=== PATIENT | female | born 1995 | race Caucasian/White ===

== ENCOUNTER 2023-05-25 00:06 | Emergency (ER) | payer SELFPAY ==
[2023-05-25 00:20] VITALS: BP 139/89
--- NOTE | 2023-05-25 00:44 | ED.GENMED ---
History of Present Illness
<DALIA Garvin - Last Filed: 05/25/23 02:16>
General
Chief Complaint: Blood and Body Fluid Exposure
Source: patient
Exam Limitations: none
Time Seen by Provider: 05/25/23 00:38
Nursing documentation reviewed up to this point in time: agreed with
Travel History
Have you had any contact with someone who has COVID-19?: No
Do you have any symptoms of coronavirus? Fever > 100 degrees, chills, cough, shortness of breath, sore throat, loss of taste or smell, muscle aches, or headache?: No
History of Present Illness
History of Present Illness:
This is a 27 year old female with no significant PMH who reports to the ED after possible blood exposure. 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 Pt is unsure if it went in
her eye. She rinsed her eye out with saline for 15-20 seconds. Pt is unsure if the patient she was taking care of has any other medical conditions besides cancer. She thinks she had Hep B titers 5 years ago but is unsure when her last immunization
was. She cannot remember her last tetanus shot but thinks it was more than 10 years ago.
Past History
<DALIA Garvin - Last Filed: 05/25/23 02:16>
Past History
ED Past Medical History: None
ED Past Surgical History: None
Review of Systems
<DALIA Garvin - Last Filed: 05/25/23 02:16>
Review of Systems
Allergies reviewed?: Yes
All Other Systems: ROS reviewed and negative except as documented in HPI and ROS
Phy Exam
<DALIA Garvin - Last Filed: 05/25/23 02:16>
General Physical Exam
General Presentation: well appearing and no apparent distress
General age: appears stated age
General Skin: warm and dry
General Habitus: normal
General Mental: alert
General Hydration: appears well hydrated
ENT Exam
ENT Exam: neck supple, normocephalic and swallowing well
Cardiovascular Exam
Cardiovascular Exam: regular rate/rhythm, no murmur and normal peripheral pulses
Pulmonary Exam
Pulmonary Exam: lungs clear and no respiratory distress
Neurological Exam
Neurological Exam: alert and oriented x3
Musculoskeletal Exam
Musculoskeletal Exam: full ROM
Skin Exam
Skin Exam: normal color and warm/dry
Psychiatric Exam
Psychiatric Exam: normal mood/affect
Course
<ST VirgiePA - Last Filed: 05/25/23 02:16>
Orders/Labs/Results
Orders:
Orders
05/25/23 00:19
Pt has had a significant HIV exposure? Routine
HIV Exposure is significant?: No
05/25/23 01:09
HIV Combo Urgent
Hepatitis B Surface Antibody Urgent
Hepatitis B Surface Antigen Urgent
Hepatitis C Antibody Urgent
05/25/23 01:16
Tetanus/Diphth/Acelpertussis [Adacel] 0.5 ml IM .ONCE ONE
Vital Signs
Initial and Last Documented VS:
Initial Vital Signs
Temp Pulse Resp BP Pulse Ox
99.1 F 80 20 139/89 100
05/25/23 00:20 05/25/23 00:20 05/25/23 00:20 05/25/23 00:20 05/25/23 00:20
Last Documented Vital Signs
Temp Pulse Resp BP Pulse Ox
99.1 F 80 20 139/89 100
05/25/23 00:20 05/25/23 00:20 05/25/23 00:20 05/25/23 00:20 05/25/23 00:20
<Benny Helms DO - Last Filed: 05/25/23 01:31>
Orders/Labs/Results
Orders:
Orders
05/25/23 00:19
Pt has had a significant HIV exposure? Routine
HIV Exposure is significant?: No
05/25/23 01:09
HIV Combo Urgent
Hepatitis B Surface Antibody Urgent
Hepatitis B Surface Antigen Urgent
Hepatitis C Antibody Urgent
05/25/23 01:16
Tetanus/Diphth/Acelpertussis [Adacel] 0.5 ml IM .ONCE ONE
Vital Signs
Initial and Last Documented VS:
Initial Vital Signs
Temp Pulse Resp BP Pulse Ox
99.1 F 80 20 139/89 100
05/25/23 00:20 05/25/23 00:20 05/25/23 00:20 05/25/23 00:20 05/25/23 00:20
Last Documented Vital Signs
Temp Pulse Resp BP Pulse Ox
99.1 F 80 20 139/89 100
05/25/23 00:20 05/25/23 00:20 05/25/23 00:20 05/25/23 00:20 05/25/23 00:20
<DALIA Garvin - Last Filed: 05/25/23 02:16>
*Critical Care Note
Total Time (30-74mins, 75-104mins- exclusive of procedures): Not Applicable
ED Attending Note
<DALIA Garvin - Last Filed: 05/25/23 02:16>
-
Portions of this chart may have been created with voice recognition software.� Occasional wrong word or��sound alike� substitutions may have occurred due to the inherent limitations of voice recognition software.
<Benny Helms DO - Last Filed: 05/25/23 01:31>
ED Attending Note
Patient seen and examined by attending physician: Yes
I performed the substantive portion of visit, reviewed & personally made and approve the management plan that is documented in note by myself or FERNANDO.: Yes
ED Attending Note:
Pleasant 27-year-old female presents to the ER after possible blood exposure. She was doing an Accu-Chek on a patient and some blood splashed onto her cheek. She did not feel anything going to her eye but she flushed her eye with saline
immediately after. Patient was told to come down to the emergency department for evaluation. Patient was seen in conjunction with the PA student. I have reviewed and agree with the history and treatment plan presented. On my independent physical
exam, patient is awake, alert, and oriented x3, no acute distress. No obvious visual contamination. Heart is regular rate and rhythm.
Vital signs are stable. Patient not hypoxic
Nursing note reviewed. I agree with nursing documentation up to this point in time.
Home Meds and allergies reviewed.
NUMBER AND COMPLEXITY OF PROBLEMS ADDRESSED AT THE ENCOUNTER
� Chronic conditions affecting care: None
� Acute Exacerbation and/or Progression of Chronic Illness: None
� Differential Diagnosis includes: Significant versus nonsignificant exposure
AMOUNT AND/OR COMPLEXITY OF DATA TO BE REVIEWED AND ANALYZED
I performed an independent evaluation of the following and my interpretation is:
EKG:
CT:
X-rays:
Ultrasound:
Laboratory Studies:
Other:
Review of other/old records:
Clinical information was obtained by an independent historian:
Prescriptions/Medications Considered but not given:
Further testing considered but not performed:
RISK OF COMPLICATIONS AND/OR MORBIDITY OR MORTALITY OF PATIENT MANAGEMENT
Social determinants of health affecting care: Good Social Support
Discussion with other providers:
Escalation of care including admission/observation vs risk of discharge considered: Admission not indicated
CRITICAL CARE NOTE: Not applicable
Total Time (exclusive of procedures):
Update:
I feel that this is a nonsignificant exposure. The amount of blood that hit her face was less than a small drop. She did not feel anything going to her eye but flushed it anyway. She has no open wounds on the skin where the blood was. Source
patient has no known infectious disease
Discharge Plan
Departure
Patient Disposition: Home (Routine Discharge)
Date of Disposition: 05/25/23
Time of Disposition: 01:29
Patient with high blood pressure during this ER visit?: Yes
Condition: Good
Discharge Problem:
Employee exposure to body fluids
Instructions: Blood or body fluid exposure
Referrals:
Zuly Olivarez, [Family Provider] -
Stand Alone Forms: Bl/Fluid Consent/Declination, Blood Body/Fluid Exposure
Activity Restrictions/Additional Instructions:
It was a pleasure meeting you and taking part in your care. We hope for your continued healing and wellness.
Please read discharge instructions in their entirety. However, they are for general education and may not describe your exact diagnosis at discharge. Information on your ER visit and medical conditions were discussed with you along with appropriate
follow up information...
If indicated, please take your medications as instructed and indicated on discharge paperwork.
Please schedule a follow up appointment as directed. Call to schedule an appointment
Please return to the emergency department with ANY change in, persisting, or worsening of symptoms. If any of your symptoms do not improve, or persist, or become more severe within 6-12 hours, please return to the emergency department for further
care.
Please return to the emergency department if you develop a headache, neck pain/stiffness, fever greater than 100.4F, chest pain, shortness of breath, persistent nausea, vomiting, slurred speech, difficulty walking, numbness/tingling, weakness, signs
of infection or any other symptoms that are worrisome to you.
If you have any questions or concerns please do not hesitate to call the Hospital at or E-mail me directly at [email or web address]
Interventions
Interventions:
*Risk Screen - Suicide Last Done: 05/25/23 00:20
*General Assessment Last Done: 05/25/23 00:20
*Neglect/Abuse Screening Last Done: 05/25/23 00:20
ED- Fall Risk Assessment Last Done: 05/25/23 00:20
*ED COVID-19 Vaccine History Last Done: 05/25/23 00:20
*Nursing Disposition Last Done: 05/25/23 01:38
ED-EENT Assessment Last Done: 05/25/23 01:37
ED-Skin Assessment Last Done: 05/25/23 01:37
Discharge Date and Time
Discharge Date/Time: 05/25/23 01:39
[2023-05-25] MEDS: ADACEL 0.5 ML IM (01:19)
[2023-05-25 02:24] LABS: Hepatitis B Surface Antigen Negative (Negative)
[2023-05-25 02:42] LABS: Hepatitis B Surface Antibody Positive; Hepatitis C Antibody Negative (Negative)
[2023-05-25 13:28] LABS: HIV Combo Negative (Negative)
== END 2023-05-25 01:39 | disposition home or self-care (01) ==
LOC: EMR 00:06
PROVIDERS: EMERGENCY PHYSICIAN Student in an Organized Health Care Education/Training Program; FAMILY PHYSICIAN Family Medicine
DX: Z77.21 Contact with and (suspected) exposure to potentially hazardous body fluids (principal); Y99.0 Civilian activity done for income or pay; Z23 Encounter for immunization
CPT/HCPCS: 99283; 90471; 86706; 86803; 87340; 87389; 90715

== ENCOUNTER → 2024-04-04 09:45 | Outpatient (REF) | payer BC, SELFPAY ==
[2024-04-13 10:06] LABS: Chlamydia trachomatis,ThinPrep Negative (Negative); Neisseria gonorrhoeae,ThinPrep Negative (Negative); Specimen Source Cervical
== END ==
LOC: CPAP 09:45
PROVIDERS: ATTENDING PHYSICIAN Obstetrics & Gynecology
DX: Z11.3 Encounter for screening for infections with a predominantly sexual mode of transmission (principal); Z32.01 Encounter for pregnancy test, result positive
CPT/HCPCS: 87491; 87591

== ENCOUNTER → 2024-04-10 06:26 | Outpatient (REF) | payer BC, SELFPAY ==
[2024-04-10 08:09] LABS: Urine Albumin Trace (Neg - Trace); Urine Bilirubin Negative (Negative); Urine Character Clear (Clear); Urine Color Yellow; Urine Glucose Negative (Negative); Urine Ketone 3+ (Negative); Urine Leukocyte Trace (Negative); Urine Nitrite Negative (Negative); Urine Occult Blood Negative (Negative); Urine Specific Gravity 1.025 (<1.030); Urine Urobilinogen Negative (Neg - 1+)
[2024-04-10 08:12] LABS: % Basophils 0.3 % (0-2); % Eosinophils 0.9 % (0-6); % Immature Granulocytes 0.5 % (0-0.5); % Monocytes 5.5 % (1.7-9.3); % Neutrophils 64.8 % (42.2-75.2); Absolute Eosinophils 0.1 10^3/uL (0-0.7); Absolute Immature Granulocytes 0.1 10^3/uL (0-0.05); Absolute Monocytes 0.6 10^3/uL (0.1-0.6); Absolute Neutrophils 6.9 10^3/uL (1.4-6.5); Hematocrit 35.3 % (37.0-47.0); Hemoglobin 11.9 g/dL (12.0-16.0); Mean Corp Hgb Conc. 33.7 g/dL (33.0-37.0); Mean Corpuscular Hgb 30.6 pg (27.0-31.0); Mean Corpuscular Volume 90.7 fL (81.0-99.0); Mean Platelet Volume 9.5 fL (7.4-10.4); Nucleated Red Blood Cells % 0 %; Platelet Count 261 10^3/uL (130-400); Red Blood Cell Count 3.89 10^6/uL (4.20-5.40); Red Cell Dist. Width 12.2 % (11.5-14.5); White Blood Cell Count 10.6 10^3/uL (4.8-10.8)
[2024-04-10 08:30] LABS: Urine Mucus Many
[2024-04-10 08:31] LABS: Urine Amorphous Seen; Urine Squamous Cell >30 /LPF (Few)
[2024-04-10 08:35] LABS: Urine Bacteria Moderate (Negative); Urine Red Blood Cell 0-2 /HPF (0-2)
[2024-04-10 08:51] LABS: Glycohemoglobin (HgbA1c) 4.9 % (4.0-5.6)
[2024-04-10 19:02] LABS: Hepatitis B Surface Antigen Negative (Negative)
[2024-04-10 19:20] LABS: Hepatitis C Antibody Negative (Negative)
[2024-04-11 11:57] LABS: Syphilis/T. pallidum Ab Reflex Negative (Negative)
[2024-04-11 13:23] LABS: HIV Combo Negative (Negative)
== END ==
LOC: REG 06:26
PROVIDERS: ATTENDING PHYSICIAN Obstetrics & Gynecology
DX: Z32.01 Encounter for pregnancy test, result positive (principal)
CPT/HCPCS: 36415; 81003; 81015; 83036; 84702; 85025; 86780; 86803; 86850; 86900; 86901; 87086; 87340; 87389

== ENCOUNTER → 2024-04-17 13:25 | Outpatient (REF) | payer BC, SELFPAY | LOC: PNTC 13:25 | PROVIDERS: ATTENDING PHYSICIAN Obstetrics & Gynecology | DX: Z36.0 Encounter for antenatal screening for chromosomal anomalies (principal); O09.30 Supervision of pregnancy with insufficient antenatal care, unspecified trimester; O36.5920 Maternal care for other known or suspected poor fetal growth, second trimester, not applicable or unspecified | CPT/HCPCS: 76811 ==

== ENCOUNTER → 2024-05-29 10:26 | Outpatient (REF) | payer BC, SELFPAY ==
[2024-05-29 12:27] LABS: % Basophils 0.2 % (0-2); % Eosinophils 0.5 % (0-6); % Immature Granulocytes 0.5 % (0-0.5); % Lymphocytes 16.3 % (20.5-51.1); % Monocytes 4.6 % (1.7-9.3); % Neutrophils 77.9 % (42.2-75.2); Absolute Eosinophils 0.1 10^3/uL (0-0.7); Absolute Immature Granulocytes 0.1 10^3/uL (0-0.05); Absolute Monocytes 0.6 10^3/uL (0.1-0.6); Absolute Neutrophils 9.5 10^3/uL (1.4-6.5); Hematocrit 34.9 % (37.0-47.0); Hemoglobin 11.6 g/dL (12.0-16.0); Mean Corp Hgb Conc. 33.2 g/dL (33.0-37.0); Mean Corpuscular Hgb 30.4 pg (27.0-31.0); Mean Corpuscular Volume 91.4 fL (81.0-99.0); Mean Platelet Volume 9.2 fL (7.4-10.4); Nucleated Red Blood Cells % 0 %; Platelet Count 268 10^3/uL (130-400); Red Blood Cell Count 3.82 10^6/uL (4.20-5.40); Red Cell Dist. Width 12.7 % (11.5-14.5); White Blood Cell Count 12.1 10^3/uL (4.8-10.8)
[2024-05-29 12:44] LABS: 1 Hour after 50gm 112 mg/dl
[2024-05-30 17:47] LABS: Syphilis/T. pallidum Ab Reflex Negative (Negative)
== END ==
LOC: REG 10:26
PROVIDERS: ATTENDING PHYSICIAN Student in an Organized Health Care Education/Training Program; FAMILY PHYSICIAN Family Medicine
DX: Z34.93 Encounter for supervision of normal pregnancy, unspecified, third trimester (principal)
CPT/HCPCS: 36415; 82950; 85025; 86780

== ENCOUNTER → 2024-08-06 10:09 | Outpatient (REF) | payer BC, SELFPAY | LOC: CLAB 10:09 | PROVIDERS: ATTENDING PHYSICIAN Obstetrics & Gynecology | DX: Z36.85 Encounter for antenatal screening for Streptococcus B (principal); Z34.03 Encounter for supervision of normal first pregnancy, third trimester | CPT/HCPCS: 87070 ==

== ENCOUNTER 2024-08-30 00:06 | Inpatient (IN) | payer BC, SELFPAY ==
[2024-08-30 00:24] VITALS: BP 130/87; BMI 25.0
[2024-08-30] MEDS: LR 1000 IV (00:30)
[2024-08-30 00:48] LABS: % Basophils 0.2 % (0-2); % Eosinophils 0.2 % (0-6); % Lymphocytes 15.4 % (20.5-51.1); % Neutrophils 77.2 % (42.2-75.2); Absolute Immature Granulocytes 0.2 10^3/uL (0-0.05); Absolute Lymphocytes 2.7 10^3/uL (1.2-3.4); Absolute Neutrophils 13.4 10^3/uL (1.4-6.5); Hematocrit 39.3 % (37.0-47.0); Hemoglobin 13.3 g/dL (12.0-16.0); Mean Corp Hgb Conc. 33.8 g/dL (33.0-37.0); Mean Corpuscular Hgb 30.5 pg (27.0-31.0); Mean Corpuscular Volume 90.1 fL (81.0-99.0); Mean Platelet Volume 9.8 fL (7.4-10.4); Nucleated Red Blood Cells % 0 %; Platelet Count 254 10^3/uL (130-400); Red Blood Cell Count 4.36 10^6/uL (4.20-5.40); Red Cell Dist. Width 11.9 % (11.5-14.5); White Blood Cell Count 17.4 10^3/uL (4.8-10.8)
[2024-08-30] MEDS: FENTANYL/BUPIVACAINE 100 EPIDURAL ×2 (01:23→08:10)
[2024-08-30] MEDS: SUBLIMAZE 100 MCG EPIDURAL (01:23)
[2024-08-30] MEDS: PITOCIN 30 UNITS/NSS 500 ML IV (08:26)
[2024-08-30] MEDS: PRENATAL PLUS PO (09:58)
[2024-08-30] MEDS: MOTRIN 600 MG PO ×2 (10:00→20:14)
[2024-08-30] MEDS: SENOKOT-S 1 TABLET PO (20:14)
[2024-08-31] MEDS: MOTRIN 600 MG PO (02:36)
[2024-08-31 04:41] LABS: Hematocrit 31.2 % (37.0-47.0); Hemoglobin 10.6 g/dL (12.0-16.0)
[2024-08-31] MEDS: PRENATAL PLUS 1 TABLET PO (08:05)
[2024-09-01] MEDS: PRENATAL PLUS 1 TABLET PO (08:51)
[2024-09-01] MEDS: SENOKOT-S 1 TABLET PO (08:51)
[2024-09-01 19:34] LABS: Rubella Positive
[2024-09-02 14:10] LABS: Syphilis/T. pallidum Ab Reflex Negative (Negative)
== END 2024-09-01 12:05 | disposition home or self-care (01) | DRG 807 ==
LOC: LDRP 00:06
PROVIDERS: Obstetrics & Gynecology; ADMITTING PHYSICIAN Obstetrics & Gynecology
PROC: 10E0XZZ Delivery of Products of Conception, External Approach (ICD-10-PCS; 2024-08-30)
DX: O77.0 Labor and delivery complicated by meconium in amniotic fluid (principal); Z37.0 Single live birth; Z3A.40 40 weeks gestation of pregnancy; O71.82 Other specified trauma to perineum and vulva
CPT/HCPCS: 88307; 85014; 85018; 85025; 86762; 86780; 86850; 86900; 86901